=== PATIENT | female | born 1930 | race Caucasian/White ===

== ENCOUNTER → 2017-03-07 | Outpatient (CLI) | payer OTHER ==
[~2017-03-07] VITALS: Ht 154.9 cm; Wt 68.7 kg
[~2017-03-07] MED LIST: ACET1TAB84 PO; ASPI81TA28 PO; ATOR-24 PO; ATORVASTATIN PO; CALC-51 PO; CHOL1000 PO; DOCU-94 PO; LEVO75TA PO; METO100T44 PO; OMEG10007 PO; PANT40TA PO
[2017-03-07 14:38] VITALS: Ht 154.9 cm; Wt 68.7 kg
--- NOTE | 2017-03-07 15:19 | PAT Medication Instructions ---
Service Date Mar 07, 2017. Current Home Medication List Acetaminophen (Tylenol Arthritis Ext Rel), 650 MG PO PRN Aspirin (Aspirin Ec), 81 MG PO QAM Atorvastatin (Lipitor), 40 MG PO QAM Cholecalciferol (Vitamin D3), 1 TAB PO BID Docusate Sodium (Colace), 1 CAP PO BID Fish Oil ([place]-3), 1 CAP PO QAM Levothyroxine Sodium (Synthroid), 75 MCG PO for M Metoprolol Succ (Toprol Xl) (Toprol-Xl ), 100 MG PO QAM Pantoprazole (Protonix), 40 MG PO BID [Calcium], 600 MG PO QAM Medication Instructions For Your Scheduled Surgery - Check with surgeon/mental health worker for instructions: Aspirin (Aspirin Ec), 81 MG PO QAM - Hold the following medications starting 03/08/17: Fish Oil ([place]-3), 1 CAP PO QAM - Hold the following medications the morning of the surgery: Cholecalciferol (Vitamin D3), 1 TAB PO BID Docusate Sodium (Colace), 1 CAP PO BID [Calcium], 600 MG PO QAM - Take the following medications the morning of surgery with a sip of water: Metoprolol Succ (Toprol Xl) (Toprol-Xl ), 100 MG PO QAM Pantoprazole (Protonix), 40 MG PO BID Levothyroxine Sodium (Synthroid), 75 MCG PO for M Atorvastatin (Lipitor), 40 MG PO QAM Acetaminophen (Tylenol Arthritis Ext Rel), 650 MG PO PRN (if needed) - Take the following medications as scheduled the night before surgery: Pantoprazole (Protonix), 40 MG PO BID Acetaminophen (Tylenol Arthritis Ext Rel), 650 MG PO PRN (if needed) If you have any questions please call us at [phone] or [phone] or [phone]
--- NOTE | 2017-03-07 16:01 | DIAGNOSTIC IMAGING REPORT ---
CHEST PREADMISSION(PA/LAT) CLINICAL HISTORY: Preoperative chest COMPARISON STUDY: No previous studies for comparison. FINDINGS: The heart is mildly enlarged. There are multiple old left-sided rib fractures. There is age-indeterminate left-sided pleural fluid/thickening. There is no focal pulmonary consolidation. There is no pneumothorax. There is no failure. There are several mild mid thoracic compression deformities, likely old.[ IMPRESSION: 1. Multiple old left-sided rib fractures 2. Age-indeterminate left-sided pleural fluid/thickening 3. No evidence of focal pulmonary consolidation Electronically signed by: Corbin Beck M.D. 03/07/2017 3:59 PM Dictated Date/Time: 03/07/2017 3:58 PM
[2017-03-07 16:18] LABS: BASO % 0.3 %; BASO ABS # 0.03 K/uL (0-0.2); COMPLETE YES; EOS % 0.8 %; HEMATOCRIT 40.3 % (37-47); IG% 0.2 %; LYMPH % 22.6 %; LYMPH ABS # 2.16 K/uL (1.2-3.4); MEAN CELL VOLUME 88.8 fL (80-100); MEAN CORPUSCULAR HEMOGLOBIN 28.2 pg (25-34); MEAN CORPUSCULAR HGB CONC 31.8 g/dl (32-36); MEAN PLATELET VOLUME 11.4 fL (7.4-10.4); MONO % 9.8 %; NEUT % 66.3 %; PLATELET COUNT 182 K/uL (130-400); RED BLOOD COUNT 4.54 M/uL (4.2-5.4); WHITE BLOOD COUNT 9.56 K/uL (4.8-10.8)
[2017-03-07 16:26] LABS: BUN/CREATININE RATIO 19.9 (10-20); CALCIUM 9.6 mg/dl (8.5-10.1); POTASSIUM 4.3 mmol/L (3.5-5.1)
[2017-03-07 16:34] LABS: URINE APPEARANCE CLOUDY (CLEAR); URINE BILIRUBIN NEG (NEG); URINE COLOR DK YELLOW; URINE NITRITE NEG (NEG); URINE SPECIFIC GRAVITY 1.023 (1.000-1.030); UROBILINOGEN NEG (NEG); ZZUR CULT IF INDIC CLEAN CATCH YES
[2017-03-07 16:48] LABS: MANUAL MICROSCOPIC REQUIRED? NO; REVIEW REQ? NO
== END | disposition home or self-care (01) ==
LOC: C.LAB 08:00 → C.ACU 14:15 → EDSTATUS 03-19 13:38
PROVIDERS: ATTEND Orthopaedic Surgery Orthopaedic Surgery of the Spine
DX: Z01.812 Encounter for preprocedural laboratory examination (principal); Z01.810 Encounter for preprocedural cardiovascular examination